=== PATIENT | female | born 1985 | race Caucasian/White ===

== ENCOUNTER 2018-06-09 08:38 | Outpatient (CLI) | payer BC | END 2018-06-09 08:39 | disposition home or self-care (01) | LOC: DTY/OP 08:38 | PROVIDERS: ATTEND Specialist | DX: Z01.818 Encounter for other preprocedural examination (principal); E66.01 Morbid (severe) obesity due to excess calories | CPT/HCPCS: 97802 ==

== ENCOUNTER 2018-07-10 10:30 | Inpatient (IN) | payer BC ==
--- NOTE | 2018-07-07 08:21 | HP ---
HISTORY OF PRESENT ILLNESS: Constance Whitlock is a 33-year-old female, followed by Dr. Ana Lilia Da Silva, has attended our bariatric seminar, saw me initially on 05/30/2018, has seen our switch foreman, psychologist and has had baseline labs. Baseline labs are essentially unremarkable. We initially saw her with 249 pounds, 42 BMI, 5 feet 4 inches. In this preop visit, 235 pounds, 40 BMI, planned a laparoscopic sleeve gastrectomy. She understands the risks and benefits, and consents. Questions answered. Psychologist has endorsed her, believes her to be a good patient who would do well postoperatively. MEDICATIONS: 1. Iron. 2. Vitamin D. 3. Multivitamins. 4. Wellbutrin. PAST MEDICAL HISTORY: Pregnancies, postnasal drip, mild GERD, rarely bothers her, morbid obesity. PAST SURGICAL HISTORY: Oral surgery, in February 2014, tonsillectomy. FAMILY HISTORY: Noncontributory. SOCIAL HISTORY: Tobacco, none. Alcohol, rarely. PHYSICAL EXAMINATION: VITAL SIGNS: 235 pounds, 40 BMI, 141/78, 95, 99.1 degrees, 5 feet 4 inches. HEAD, EARS, EYES, NOSE, AND THROAT: Unremarkable. LUNGS: Clear to auscultation. CARDIAC: Regular rate and rhythm. No murmur or gallop. ABDOMEN: Soft and nontender. NEUROLOGIC: Neurologically intact, no focal deficit. EXTREMITIES: No ankle edema. ASSESSMENT AND PLAN: Morbid obesity. Planned sleeve gastrectomy. Risks and benefits explained, she consents. Job ID: [id number]
[2018-07-10 10:57] VITALS: BMI 39.8
[2018-07-12] MEDS ORDERED: Ketorolac Tromethamine 30 MG/ML VIAL ONE (06:05)
[2018-07-12] MEDS ORDERED: Heparin 5,000 UNITS/ML VIAL ONE (06:05)
[2018-07-12] MEDS ORDERED: Scopolamine 1.5 mg/72 hour Patch ONE (06:05)
[2018-07-12] MEDS ORDERED: cefOXitin Sodium/Dextrose,Iso 2 GM in Premix Bag 1 BAG IVPB SCH (06:15)
[2018-07-12] MEDS ORDERED: Bupivacaine/Epinephrine 0.25% 30 ML VIAL ONE ×2 (06:28→06:39)
[2018-07-12] MEDS ORDERED: Fentanyl 100 MCG/2 ML VIAL ONE ×2 (06:33→09:19)
[2018-07-12] MEDS ORDERED: hydrALAZINE 20 MG/ML VIAL SLOW IVP PRN (09:24)
[2018-07-12] MEDS ORDERED: diphenhydrAMINE 50 MG/ML VIAL IVP PRN (09:24)
[2018-07-12] MEDS ORDERED: Ondansetron PF 4 MG/2 ML Vial IVP PRN (09:24)
[2018-07-12] MEDS ORDERED: D5 1/2 NS w/20 mEq KCL 1,000 ML ONE (09:36)
[2018-07-12] MEDS ORDERED: Morphine 2 MG/ML SYRINGE SLOW IVP PRN (09:45)
--- NOTE | 2018-07-12 10:23 | OP ---
DATE OF PROCEDURE: 07/12/2018 PREOPERATIVE DIAGNOSIS: Morbid obesity, 235 pounds, 40 BMI. Comorbidities, mild gastroesophageal reflux disease, rarely. POSTOPERATIVE DIAGNOSIS: Morbid obesity, 235 pounds, 40 BMI. Comorbidities, mild gastroesophageal reflux disease, rarely. PROCEDURE PERFORMED: Laparoscopic sleeve gastrectomy, 36-Micronesian bougie staple line within 4 cm of the pylorus. Completion endoscopy visualizing the pylorus. ANESTHESIA: General, local 0.25% Marcaine with epinephrine 60 mL total volume used. DESCRIPTION OF PROCEDURE: The patient was taken to the operating room, where under general anesthesia, abdomen was prepared with ChloraPrep and draped in routine fashion. Local anesthetic was infiltrated in the skin and subcutaneous tissue about each port site. A total volume was used. Supraumbilical incision was made in midline and pneumoperitoneum to 15 mmHg obtained with a Veress needle, replaced with a 5 port, laparoscope inserted. Bilateral far lateral subcostal incision was made and 5 port was placed. Bilateral midclavicular upper abdominal incisions were made, and a 15 mm port was placed on the left and 12 mm port placed on the right, and Jamey liver retractor was placed through a subxiphoid skin incision visualized laparoscopically reflecting the left lobe of the liver anteriorly and cephalad. Liver was healthy, malleable, and non-fatty. Angle of His was identified. Stomach deflated with orogastric tube. The gastrocolic and splenic ligament taken down adjacent to the greater curvature of stomach using the LigaSure to obtain good hemostasis. This was taken down to within 4 cm of the pylorus. Dissection was carried up fully mobilizing the fundus visualizing the angle of His and there was no hiatal hernia. At this point, orogastric tube was removed by Anesthesia and a 36-Micronesian bougie placed, visualized laparoscopically, properly positioned along the lesser curvature, directed down toward the pylorus and serial fires of stapler initially with green load, then gold load and then blue loads fired, completing the sleeve gastrectomy, avoiding encroachment on the angle of His, allowing adequate space here to prevent pseudo-obstruction. Upper staple fires were well clear of the ankle of His to avoid the esophagus. Staple line was oozing, and clips applied, getting good hemostasis. Sleeve gastrectomy then removed through the midclavicular left upper abdominal 15 mm port site intact without spillage, and the fascia was closed with [id number] suture of 0 Vicryl GraNee needle. I then performed an endoscopy, upper endoscope placed per os under direct visualization, passed throughout the esophagus to the sleeve gastrectomy, visualizing the pylorus withdrawn without obstruction, decompressing the sleeve gastrectomy noting absence of bleeding. Esophagus was normal otherwise. We then scrubbed and returned to the surgical site, and abdominal cavity irrigated, irrigant evacuated. Good hemostasis noted. There was no evidence of leak. Pneumoperitoneum evacuated. All instruments were removed, and all skin incisions were approximated with interrupted subdermal 4-0 Monocryl and [place] glue applied. The patient tolerated the procedure well. Job ID: [id number]
[2018-07-12] MEDS: Ketorolac Tromethamine 30 MG/ML VIAL IVP SCH ×3 (11:31→23:25)
[2018-07-12] MEDS: Acetaminophen 1,000 MG in Premix Bag 1 BAG IVPB SCH ×3 (11:33→21:27)
[2018-07-12] MEDS: D5 1/2 NS w/20 mEq KCL 1,000 ML IV SCH ×3 (11:34→21:36)
[2018-07-12] MEDS ORDERED: Lidocaine 1% PF 5 ML VIAL ONE (13:41)
[2018-07-12] MEDS ORDERED: PROPOFOL 200 MG/20 ML VIAL ONE (13:41)
[2018-07-12] MEDS ORDERED: Dexamethasone 20 MG/5 ML VIAL ONE (13:41)
[2018-07-12] MEDS ORDERED: Ondansetron PF 4 MG/2 ML Vial ONE (13:41)
[2018-07-12] MEDS ORDERED: Glycopyrrolate 0.2 MG/ML 5 ML SYRINGE ONE (13:41)
[2018-07-12] MEDS ORDERED: Rocuronium Bromide 10 MG/ML (10ML VIAL) ONE (13:41)
[2018-07-12] MEDS: Morphine 4 MG/ML VIAL SLOW IVP PRN ×2 (13:53→18:06)
[2018-07-12] MEDS ORDERED: Enoxaparin Sodium 40 MG/0.4 ML SYRINGE SC SCH (21:00)
[2018-07-13] MEDS: Ketorolac Tromethamine 30 MG/ML VIAL IVP SCH ×2 (05:08→12:05)
[2018-07-13] MEDS: Acetaminophen 1,000 MG in Premix Bag 1 BAG IVPB SCH (05:08)
[2018-07-13 05:20] LABS: #Lymphocytes 2.9 thou/uL (1.20-3.40); #Monocytes 1.1 thou/uL (0.11-0.59); #Neutrophils 11.6 thou/uL (1.40-6.50); %Basophils 0.3 % (0.0-1.0); %Eosinophils 0.1 % (0.0-10.0); %Lymphocytes 18.5 % (21.0-51.0); %Monocytes 6.8 % (0.0-10.0); %Neutrophils 74.4 % (42.0-75.0); Hemoglobin 12.4 g/dL (12.0-16.0); Mean Corpuscular HGB CONC 31.7 g/dL (32.0-36.0); Mean Corpuscular Hemoglobin 26.3 pg (27.0-31.0); Mean Corpuscular Volume 83.1 fL (78.0-98.0); Mean Platelet Volume 8.2 fL (7.4-10.4); Platelet Count 338 thou/uL (130-400); Red Blood Cell (RBC) Count 4.73 mill/uL (4.20-5.40); White Blood Cell (WBC) Count 15.6 thou/uL (4.8-10.8)
[2018-07-13 05:40] LABS: Anion Gap 12 mmol/L (10-20); BUN (Urea Nitrogen) 7 mg/dL (7.0-18.7); Calc. Creatinine Clearance 157 mL/min (70-130); Calcium 9.7 mg/dL (7.8-10.44); Carbon Dioxide 27 mmol/L (22-29); Chloride 105 mmol/L (98-107); Estimated GFR-MDRD 78; Glucose 127 mg/dL (70-105); Potassium 4.6 mmol/L (3.5-5.1); Sodium 139 mmol/L (136-145)
[2018-07-13] MEDS ORDERED: traMADol HCl 50 MG TAB PO PRN ×2 (07:00)
[2018-07-13] MEDS ORDERED: Pantoprazole 40 MG VIAL IVP SCH (09:00)
[2018-07-13] MEDS ORDERED: Acetaminophen 325 MG/10.15 ML UDCUP PO PRN (09:24)
[2018-07-13 11:44] VITALS: BP 127/83; TEMP 98.3
[2018-07-13] MEDS ORDERED: Acetaminophen 500 MG TAB PO PRN (13:51)
--- NOTE | 2018-07-13 14:29 | PRG ---
DATE OF SERVICE: 07/13/2018 SUBJECTIVE: Ms. Whitlock is doing well one day after sleeve gastrectomy. She is tolerating her liquids. She has been saline lock last night. She is tolerating oral medications. OBJECTIVE: LUNGS: Clear to auscultation. CARDIAC: Regular rate and rhythm without murmur or gallop. ABDOMEN: Soft and nontender. LABORATORY DATA: Laboratories are normal postoperatively this morning. ASSESSMENT AND PLAN: Doing well after sleeve gastrectomy, home with diet progression as instructed. Bariatric clears to pureed, then to soft over the next 4 to 5 weeks. For pain, she will take [id number] Tylenol 1000 mg p.o. q.i.d. p.r.n. and Ultram p.r.n. pain. She can swallow her medications. She will resume her home medications, calcium, multivitamins, bupropion, tramadol, and Tylenol. She can shower and bathe. Job ID: [id number]
--- NOTE | 2018-07-14 03:53 | DIS ---
DATE OF ADMISSION: 07/12/2018 DATE OF DISCHARGE: 07/13/2018 DISCHARGE DIAGNOSIS: Morbid obesity. PROCEDURE: Laparoscopic sleeve gastrectomy, 36-Greek bougie, staple line within 4 cm of pylorus. No Lynne-Strips used, completion endoscopy. DISCHARGE MEDICATIONS: 1. Wellbutrin. 2. Multivitamins. 3. PPI [id number]. 4. Tylenol 1000 mg p.o. q.i.d. p.r.n. 5. Tramadol p.r.n. pain, take medication without correction. DIET AND ACTIVITY: Activity as tolerated. Bariatric diet, progression per protocol. HISTORY: A 33-year-old female attending our bariatric seminar, undergone our bariatric workup, has completed a laparoscopic sleeve gastrectomy and done well, and understands her postop instructions to follow up with my office in a week and a half. Job ID: [id number]
== END 2018-07-13 14:50 | disposition home or self-care (01) | DRG 621 ==
LOC: SURG A 07-12 05:52 → SURG B 07-12 10:16 → EDSTATUS 07-12 10:30
PROVIDERS: ADMIT Specialist; ATTEND Specialist
PROC: 0DB64Z3 Excision of Stomach, Percutaneous Endoscopic Approach, Vertical (ICD-10-PCS; principal; 2018-07-12)
PROC: 0DJ68ZZ Inspection of Stomach, Via Natural or Artificial Opening Endoscopic (ICD-10-PCS; 2018-07-12)
DX: E66.01 Morbid (severe) obesity due to excess calories (principal); K21.9 Gastro-esophageal reflux disease without esophagitis; Z68.41 Body mass index [BMI] 40.0-44.9, adult; Z90.89 Acquired absence of other organs; Z98.890 Other specified postprocedural states
CPT/HCPCS: 36415; 80048; 85025; 88307; 88312; 94760; C9113; J0131; J1100; J1644; J1650; J1885; J2001; J2270; J2405; J2704; J3010